=== PATIENT | male | born 1985 | race Caucasian/White ===

== ENCOUNTER → 2017-02-26 | Outpatient (CLI) | payer BC ==
[2017-02-26 13:40] LABS: CALCIUM OXALATE CRYSTALS SMALL
--- NOTE | 2017-02-27 01:54 | REP ---
Clinical: Nephrolithiasis. Comparison: CT dated 01/31/2017. Findings: Small, 2 - 3 mm left renal calculi are suggested. Further evaluation of the urinary tract system is limited due to overlying bowel gas and technique. There is no evidence for bowel obstruction. No obvious organomegaly. Calcification in the right nayely pelvis likely represents phlebolith. Skeletal structures are intact. Impression: Suspect small nonobstructing left renal calculi up to 3 mm. Further evaluation of the urinary tract system is limited. The Signed by Johnson Dixon MD 02/27/2017 01:45 A
== END ==
LOC: M SMT 10:43
PROVIDERS: ATTEND Nurse Practitioner Women's Health
DX: N20.0 Calculus of kidney (principal)

== ENCOUNTER → 2020-08-11 | Outpatient (CLI) | payer BC ==
--- NOTE | 2020-08-11 15:34 | REP ---
INDICATION: PAIN COMPARISON: None. TECHNIQUE: AP, lateral, bilateral oblique and sunrise views. FINDINGS: The osseous structures and joint spaces are intact and normal. There is no evidence for acute fracture or dislocation. No joint effusion is appreciated. Surrounding soft tissues are unremarkable. No subcutaneous emphysema or radiodense foreign body. IMPRESSION: Normal age-appropriate examination. No acute fracture or dislocation. <Electronically signed by Johnson Dixon > 08/11/20 [id number]
== END ==
LOC: M WUC 15:05
PROVIDERS: ATTEND Nurse Practitioner Family
DX: M25.561 Pain in right knee (principal)

== ENCOUNTER → 2022-09-03 | Outpatient (CLI) | payer OTHER ==
[~2022-09-03] MED LIST: METHACHOLINE KIT INH ONE
== END ==
LOC: M CARPUL 14:53
PROVIDERS: ATTEND Internal Medicine
DX: R05.3 Chronic cough (principal)
CPT/HCPCS: 94070; J7674